=== PATIENT | male | born 1985 | race Caucasian/White ===

== ENCOUNTER 2024-09-09 10:51 | Emergency (ER) | payer SELFPAY ==
[2024-09-09 11:03] VITALS: BP 155/96; PULSE 91; RESP 18; TEMP 36.4; O2SAT 100
--- NOTE | 2024-09-09 11:38 | ED_ITS ---
HPI - URI/Sore Throat General Chief Complaint: Upper Respiratory Infection Stated Complaint: flu symptoms Time Seen by Provider: 09/09/24 11:38 Source: patient, RN notes reviewed and old records reviewed Mode of arrival: ambulatory Limitations: no limitations History of Present Illness HPI Narrative: 39-year-old male presents to [facility] with of 2 day history of flu like symptoms which includes body aches, sweats, cough,sinus congestion,some lower back discomfort and also some left ear pain. Patient reports that girlfriend tested positive for Influenza today. Patient has not taken any OTC medications for his symptoms.Patient reports no shortness of breath, denies any nausea or vomiting. MD elicited complaint: cough and other (Body aches and sweats) Onset (ago): day(s) (2) Severity: moderate Able to tolerate fluids by mouth: Yes Treatments prior to arrival: none Related Data Allergies Allergy/AdvReac Type Severity Reaction Status Date / Time No Known Allergies Allergy Verified 09/09/24 11:03 Review of Systems Review of Systems: CONSTITUTIONAL: Reports malaise, chills, sweats, or fever. EYES: Denies visual changes, redness, or discharge. ENT: Reports rhinorrhea, congestion, sinus pain, left otalgia and no sore throat. CARDIOVASCULAR: Denies chest pain, palpitations, or edema. RESPIRATORY: Reports cough.? Denies dyspnea. GASTROINTESTINAL: Denies abdominal pain, nausea, vomiting, diarrhea SKIN: Denies rash or itching. MUSCULOSKELETAL: reports myalgia, some lower back pain NEUROLOGIC: Denies headache. All systems reviewed & are unremarkable except as noted in HPI and below PMFSH Past Medical History Medical History (Updated 09/12/24 @ 17:27 by Faith Villa NP) Ear infection Social History Social History (Updated 09/12/24 @ 17:27 by Faith Villa NP) Smoking status: Current every day smoker Tobacco type: cigarettes Alcohol intake: unknown Substance use: unknown Gender identity (if verbalized by the patient): Male Comments At time of signature, agree with nursing past medical, surgical, social and family history. There is no relevant family history pertinent to the presenting complaint Exam Narrative: GENERAL: ill-appearing, well-nourished, and in no acute distress. HEAD: Normocephalic EYES: PERRLA, conjunctivae clear ENT: Nares clear, turbinates edematous and erythematous, clear discharge. Mucous membranes moist. TM pearly marinelli with dull light reflex bilaterally; no tragal tenderness. Oropharynx erythematous without lesions. Tonsils not enlarged and without exudate, no drooling, no hoarseness, no trismus, uvula midline.post nasal drainage NECK: Supple. No lymphadenopathy CHEST: Clear to auscultation, breath sounds equal. No wheezing, rhonchi, rales, or stridor. No respiratory distress, speaks in full sentences.cough present, SAO2 100% on room air HEART: Regular rate and rhythm. No murmur heard. SKIN: Warm, dry, no rash. NEURO: Alert and oriented x3. PSYCH: Normal mood and affect Course Course Emergency Course: Patient is aware of diagnosis, understands and agrees to treatment plan.? Anticipatory guidance given.? Patient agrees to follow-up as directed and is aware of reasons to seek care at the emergency department. Portions of this record may have been created with voice recognition software Level of Care: Express Care Visit Vital Signs Vital signs: Vital Signs Temperature 36.4 C L 09/09/24 11:03 Pulse Rate 91 09/09/24 11:03 Respiratory Rate 18 09/09/24 11:03 Blood Pressure 155/96 H 09/09/24 11:03 Pulse Oximetry 100 09/09/24 11:03 Oxygen Delivery Room Air 09/09/24 11:03 Temperature 36.4 C L 09/09/24 11:03 Pulse Rate 91 09/09/24 11:03 Respiratory Rate 18 09/09/24 11:03 Blood Pressure 155/96 H 09/09/24 11:03 Pulse Oximetry 100 09/09/24 11:03 Oxygen Delivery Room Air 09/09/24 11:03 Reviewed MDM - URI/Sore Throat MDM Narrative Medical decision making narrative: Differential diagnosis considered: [place] virus, strep pharyngitis, allergic rhinitis, upper respiratory tract infection, sinusitis, rhinosinusitis, nasopharyngitis. viral pharyngitis, otitis media, otitis externa, pneumonia, bronchitis, viral cough syndrome, viral syndrome, and influenza.? Exam findings show no acute concerns or changes; patient is non-toxic appearing and is in no distress.? Patient is appropriate for outpatient treatment and follow-up. Differential Diagnosis Differential diagnosis: Likely upper respiratory infection, otitis media, viral infection, influenza and other (COVID, acute cough) Medical Records Attestation: I reviewed the patient's medical records. Lab Data Attestation: I reviewed the patient's lab results. Lab results narrative: Influenza A negative, influenza B negative, COVID antigen negative Labs: Lab Results 09/09/24 Range/Units 12:05 POC Influenza A Ag Negative (Negative) POC Influenza B Ag Negative (Negative) POC SARS CoV-2 Ag Negative (Negative) Critical Care Time Critical Care Time Critical Care Time: No Discharge Plan Discharge Clinical Impression: Acute left otitis media, URI, acute Patient Disposition: Home, Self-Care Condition: Stable Instructions: Antibiotic Form, Ear Infection (GEN), Upper Respiratory Infection (ED) Additional Instructions: Increase fluids especially juices and water Sdya-ckk-eewyfwn cough and cold medicine of your choice for your symptoms Zyrtec Claritin or Marcia daily Steroids as directed--take with food heat to the face 20-30 minutes 4-6 times a day for pain Salt water gargles, throat lozenges or throat sprays as desired Antibiotic as directed--finished the medication Tylenol or ibuprofen any fever pain If your symptoms persist, change or worsen significantly before you can contact your personal physician then please, without delay, go to the emergency department for further evaluation. Follow-up with PCP in 7-10 days or sooner if needed Follow up with PCP soon in regards to your blood pressure which is elevated above threshold for referral. Blood pressure above 120/80 may indicate pre- hypertension. 155/96 Patient Language: Welsh Prescriptions: New amoxicillin-pot clavulanate 875-125 mg tablet 1 tablet PO Q12H Qty: 20 0RF prednisone 20 mg tablet 20 mg PO BID Qty: 10 0RF Rx Instructions: take am and early pm Follow-up/Referrals: PHYSICIAN,WATER TECHNICIAN [Primary Care Provider] - Stand Alone Forms: Work/School Release IP Time of Disposition: 11:58 Quality [place] Coma Scale Eyes: Open Verbal: Oriented and Alert Motor: Follows Commands Chip Coma Total Score: 15
[2024-09-09 12:07] LABS: EDCOVIDSCREEN Negative (Negative); EDINFLUASCREEN Negative (Negative); EDINFLUBSCREEN Negative (Negative)
== END 2024-09-09 12:07 | disposition home or self-care (01) ==
PROVIDERS: Emergency Provider Registered Nurse
DX: H66.92 Otitis media, unspecified, left ear (principal); J06.9 Acute upper respiratory infection, unspecified; Z20.822 Contact with and (suspected) exposure to COVID-19; F17.210 Nicotine dependence, cigarettes, uncomplicated
CPT/HCPCS: 87426; 87804; 99203; G0463

== ENCOUNTER 2024-12-23 10:23 | Emergency (ER) | payer SELFPAY ==
--- NOTE | ~2024-12-23 | XR_ITS ---
Left Shoulder Technique: AP and scapular Y views were obtained. Clinical History: Pain Findings: No fracture or dislocation is seen. Osseous alignment is anatomic. The glenohumeral joint i s intact. There is mild AC joint degenerative change. Soft tissues are unremarkable. Impression: Mild AC joint degenerative change. Reviewed, dictated and finalized at location . Impression: Mild AC joint degenerative change.
[2024-12-23 10:31] VITALS: BP 139/90; PULSE 82; RESP 18; TEMP 36.4; O2SAT 100
--- NOTE | 2024-12-23 10:54 | ED_ITS ---
HPI - Extremity Injury (Upper) General Chief Complaint: Extremity Injury, Upper Stated Complaint: shoulder Time Seen by Provider: 12/23/24 10:54 Source: patient Mode of arrival: ambulatory Limitations: no limitations History of Present Illness HPI narrative: Patient presents today complaining of pain to the left shoulder/trap for 2 weeks now. He states that he just woke up with pain one day. There was no injury. Denies any numbness, tingling, or radiation. Patient has full range of motion of left upper extremity. Related Data Home Medications ?Medication ?Instructions ?Recorded ?Confirmed ?Last Taken ?Type No Home Medications 12/23/24 12/23/24 Unknown History Allergies Allergy/AdvReac Type Severity Reaction Status Date / Time No Known Allergies Allergy Verified 12/23/24 10:29 Review of Systems Review of Systems: CONSTITUTIONAL: Denies body aches, fever, chills, or sweats. EYES: Denies visual changes, redness, or discharge. ENT: Denies rhinorrhea, congestion, sore throat, or otalgia. CARDIOVASCULAR: Denies chest pain, palpitations, or edema. RESPIRATORY: Denies cough or dyspnea. GASTROINTESTINAL: Denies abdominal pain, nausea, vomiting, or diarrhea. GENITOURINARY: Denies dysuria or hematuria. SKIN: Denies rash, itching, or wounds. MUSCULOSKELETAL: Reports pain to left shoulder. NEUROLOGIC: Denies headache, numbness, tingling, or weakness. PSYCH: Denies depression or anxiety. All systems reviewed & are unremarkable except as noted in HPI and below PMFSH Past Medical History Medical History Ear infection Social History Social History Smoking status: Current every day smoker Tobacco type: cigarettes Alcohol intake: unknown Substance use: unknown Gender identity (if verbalized by the patient): Male Exam Narrative: GENERAL: Well-appearing, well-nourished, and in no acute distress. HEAD: Normocephalic, atraumatic. NECK: Supple. CHEST: Speaks in full sentences. No respiratory distress. HEART: Regular rate and rhythm. Normal and equal peripheral pulses. EXTREMITIES: Left shoulder has normal strength and sensation, normal range of motion with flexion/extension/rotation, but endorses pain with movement. No edema or ecchymosis, No point tenderness. No open wounds, skin tenting, or obvious deformity; alignment normal, pulse palpable and equal bilaterally, skin warm, dry, pink. Capillary refill less than 3 seconds. SKIN: Warm, dry, no rash. NEURO: Alert and oriented x3. PSYCH: Normal mood and affect. Course Course Level of Care: Express Care Visit Vital Signs Vital signs: Vital Signs Temperature 97.6 F 12/23/24 10:31 Pulse Rate 82 12/23/24 10:31 Respiratory Rate 18 12/23/24 10:31 Blood Pressure 139/90 12/23/24 10:31 Pulse Oximetry 100 12/23/24 10:31 Oxygen Delivery Room Air 12/23/24 10:31 Temperature 97.6 F 12/23/24 10:31 Pulse Rate 82 12/23/24 10:31 Respiratory Rate 18 12/23/24 10:31 Blood Pressure 139/90 12/23/24 10:31 Pulse Oximetry 100 12/23/24 10:31 Oxygen Delivery Room Air 12/23/24 10:31 Review. MDM - Extremity Injury (Upper) MDM Narrative Medical decision making narrative: Discussed physical exam findings and xray. Advised supportive measures and signs/symptoms to go to the ER. Pt is appropriate for outpt treatment and f/u with orthopedics. Imaging Data Radiologist's impression: Patient: Dorene Doherty : 1985 MR#: [id number] Age: 39 Acct:[id number] Loc: [id number] ADM Date: 12/23/24Attending Dr: Ordering Physician: Gloria Magaña APRN Date of Service: 12/23/24 Procedure(s): XR shoulder LT min 2V Accession Number(s): [id number] cc: Gloria Magaña APRN; UNKNOWN,DOCTOR~ Left Shoulder Technique: AP and scapular Y views were obtained. Clinical History: Pain Findings: No fracture or dislocation is seen. Osseous alignment is anatomic. The glenohumeral joint is intact. There is mild AC joint degenerative change. Soft tissues are unremarkable. Impression: Mild AC joint degenerative change. Critical Care Time Critical Care Time Critical Care Time: No Discharge Plan Discharge Clinical Impression: Acute shoulder pain Patient Disposition: Home Condition: Stable Instructions: Shoulder Pain (ED) Additional Instructions: Rest, ice and elevate the affected extremity. Motrin 600mg every 8 hours, as needed, for pain (take with food). Tylenol 1000mg every 8 hours. Go to the ER immediately for increased pain, tingling/numbness, swelling, and redness. Follow up with Orthopedic Surgery in 1-2 days for further evaluation - please call today for an appointment. Your blood pressure was elevated above 120/80 today at Urgent Care. This puts you above the threshold for follow up. Please schedule a followup visit with your personal physician as soon as possible, for further evaluation and treatment. Even blood pressure exceeding 120/80 may indicate pre-hypertension. Patient Language: Estonian Prescriptions: No Action No Home Medications Follow-up/Referrals: Scotty Mcdaniel MD [Physician] - UNKNOWN,DOCTOR [Primary Care Provider] - Stand Alone Forms: Work/School Release IP
== END 2024-12-23 11:41 | disposition home or self-care (01) ==
DX: M19.012 Primary osteoarthritis, left shoulder (principal); F17.210 Nicotine dependence, cigarettes, uncomplicated
CPT/HCPCS: 73030; 99213; G0463